=== PATIENT | female | born 1965 | race Caucasian/White ===

== ENCOUNTER 2018-07-10 13:01 | Emergency (ER) | payer MEDICAID ==
--- NOTE | 2018-07-10 14:55 | EDPHY ---
General Time Seen by Provider: 07/10/18 14:33 Narrative: CLINICAL IMPRESSION: Right anterior rib contusion, pulmonary nodules ASSESSMENT/PLAN: [ 53 yo female presents to the ER with 2 days of right anterior rib pain after leaning over the seat in her car and feeling a pop in her ribs. No SOB, CP, hypoxia, or respiratory distress and patient has stable VS on arrival. CXR with rib films shows no evidence of rib fracture, pneumothorax but does show a right middle lobe irregular nodule and patient is a smoker. She recollects being told by CT in [facility] > 5 yrs ago that she had RLL nodules as well but never had repeat imaging. CT today read by radiology with numerous smooth well marginated nodules in right middle lobe. No rib fx on CT. Patient was advised to have repeat CT in 6-12 months through PCP. I recommended she obtain her imaging results from the hospital in [place] and bring them to the radiology dept for comparison. PCP referrals given, patient refused and incentive spirometer. Warning signs for ER return outlined in d/c. DIFFERENTIAL DX: [ Differential includes but not limited to rib fracture, rib contusion, pneumothorax, musculoskeletal chest wall injury] ED PROCEDURES: See lab and/or imaging results below ED COURSE: X-ray results discussed with Dr. Peterson. Patient reportedly has an abnormal, 3 mm irregular nodule in the right middle lung. I reviewed images with the patient. She reports she had an x-ray and CT scan at least 4 years ago after she had secondhand smoke exposure. Patient is very upset that she is labeled a smoker but does admit that she smokes every day. She is agreeable to repeat CT scan today as she did not have this repeated 4 years ago. She is asking for a cigarette, water and food. I offered a nicotine patch which she has declined. Will give water and snacks. CT ordered 4:20 p.m.: CT scan results discussed with Dr. [place]. No identified rib fracture. Thoracic spine clear. Patient has multiple smooth marginated lung nodules the largest of which measuring 8 x 6 mm. According to Fleischner society recommendations, patient should have repeat CT scan in 6-12 months. Patient can also attempt to obtain prior CT results from radiologist in [place] or again and our radiology department is happy to compare these. This recommendation will be relayed to the patient. CHIEF COMPLAINT: [Right-sided rib pain ] HPI: 53-year-old female presents to the emergency department with 2 days of right anterior lower rib pain. Patient reports she was leaning against a seat in a car, reaching over the seat for something when she felt a pop in the right anterior ribs. She has noted increasing pain in this region over last 2 days. No associated shortness of breath or chest pain. No abdominal pain, nausea, vomiting. She has not seen anyone for this. She reports no underlying pulmonary disease or asthma. She has not taken anything for pain. PAST MEDICAL HISTORY: Thyroid problems [See triage summary and nurse notes for addition applicable history ] Pertinent Past Surgical History: None reported Family History: Noncontributory Social History: Daily smoker REVIEW OF SYSTEMS: A full 10 point review of systems was negative except for those mentioned in HPI. PHYSICAL EXAM: General Appearance: [Alert, oriented, appropriate, cooperative, NAD, well hydrated, non-toxic appearing, tachycardic,, no hypoxia.] Neck: [Supple, nontender, no lymphadenopathy, no midline pain, FROM, no meningismus.] Respiratory: [There are no retractions, lungs are clear to auscultation. Reproducible pain along the right anterior rib cage just beneath the right breast. No obvious swelling or contusion. No palpable crepitus or step-off. Cardiac: [Regular rate and rhythm, no murmurs or gallops.] Gastrointestinal: [Abdomen is soft, nontender, bowel sounds normal, no masses/ hernia, no rigidity, guarding or focal peritoneal findings. Negative Kwon sign, no right upper quadrant tenderness.] Skin: [Warm, dry, no rashes, no nodules on palpation.] MEDICAL DECISION MAKING: Patient was seen independently. Secondary supervising physician at time of evaluation was: [Dr. Domínguez ]. Diagnosis: Right anterior rib contusion, pulmonary nodules. New, requires workup Summary: [See Assessment and Plan for summary of ED visit ] Independent visualization of images, tracing, or specimens: Yes Discussed patient with another provider:Radiologist Patient Progress: Stable for D/C - History Smoking Status: Heavy smoker - Objective Vital Signs: Initial Vital Signs Temperature (C) 36.7 C 07/10/18 13:09 Heart Rate 105 H 07/10/18 13:09 Respiratory Rate 16 07/10/18 13:09 O2 Sat (%) 96 07/10/18 13:09 O2 Delivery Mode Room Air Allergies/Adverse Reactions: naproxen [From Naprosyn] Allergy (Verified 07/10/18 13:09) Penicillins Allergy (Verified 07/10/18 13:09) Sulfa (Sulfonamide Antibiotics) Allergy (Verified 07/10/18 13:09) Departure - Departure Disposition: Home, Routine, Self-Care Clinical Impression: Contusion of rib on right side, Pulmonary nodules Condition: Fair Instructions: Rib Contusion (ED) Additional Instructions: DISCHARGE INSTRUCTIONS FROM YOUR DOCTOR Thank you for visiting our emergency department today. You were treated by a physician captain's assistant today and your case was reviewed with our ED Attending physician. Please keep in mind that discharge from the emergency department does not mean that there is nothing wrong - it simply means that we have not identified an emergency condition that requires further evaluation or treatment in the hospital. You should always plan to follow up with primary care for re- evaluation of your condition in the next 2-3 days. If you have been referred to a specialist, please call as soon as possible (today or tomorrow) to schedule your follow up appointment at the appropriate time. DIAGNOSTIC WORKUP IN THE EMERGENCY DEPARTMENT TONIGHT INCLUDED CHEST X-RAY WITH RIB SERIES WELL CT SCAN OF THE CHEST. BOTH IMAGES WERE READ BY OUR RADIOLOGIST. CT SCAN SHOWS NO RIB FRACTURE. THORACIC SPINE IS WITHOUT FRACTURE. YOU HAVE SEVERAL SMOOTH, WELL-MARGINATED LUNG NODULES, THE LARGEST OF WISH MEASURING 8 X 6 MM IN THE RIGHT MIDDLE LOBE. BASED ON RADIOLOGIC RECOMMENDATIONS, A REPEAT CT SCAN IS ENCOURAGED IN 6-12 MONTHS. THIS CAN BE ARRANGED THROUGH A PRIMARY CARE DOCTOR. IF YOU DO NOT HAVE 1 A REFERRAL WAS GIVEN. YOU CAN ALSO OBTAIN PRIOR CT RESULTS FROM [facility] AND BRING THEM TO THE RADIOLOGY IMAGING DEPARTMENT HERE AT THE HOSPITAL ANY TIME FOR OUR RADIOLOGIST TO COMPARE THEM TO TODAY'S CT SCAN. YOU DO NOT NEED AN APPOINTMENT FOR THIS. RIB CONTUSIONS CAN TAKE 6-12 WEEKS TO HEAL. PLEASE AVOID ACTIVITIES THAT EXACERBATE YOUR PAIN. FOLLOW UP WITH A PRIMARY CARE DOCTOR. RETURN TO THE EMERGENCY DEPARTMENT FOR WORSENING PAIN, COUGH, FEVER, SHORTNESS OF BREATH, OR ANY OTHER CONCERN. People present with illnesses and injuries in different ways, and it is always possible that we have missed something. You may always return for re-evaluation if symptoms worsen or if they are not improving or if you develop new/different symptoms. Again, thank you for choosing our emergency department. We hope that you feel better. Referrals: NONE *PRIMARY CARE P,. [Primary Care Provider] - As per Instructions [facility],. [Clinic] - 2-3 days, if not improved
== END 2018-07-10 17:14 | disposition home or self-care (01) ==
DX: S20.211A Contusion of right front wall of thorax, initial encounter (principal); R91.8 Other nonspecific abnormal finding of lung field; F17.200 Nicotine dependence, unspecified, uncomplicated; X50.9XXA Other and unspecified overexertion or strenuous movements or postures, initial encounter; Y92.810 Car as the place of occurrence of the external cause; Y99.9 Unspecified external cause status; Y93.9 Activity, unspecified